=== PATIENT | male | born 1970 | race Caucasian/White ===

== ENCOUNTER 2021-09-20 23:03 | Emergency (ER) | payer BC, SELFPAY ==
[2021-09-20 23:13] VITALS: BP 113/81; PULSE 67; RESP 18; TEMP 36.4; O2SAT 96; BMI 26.6
--- NOTE | 2021-09-21 00:30 | ED.GENADULT ---
HPI - General Adult General Time Seen by Provider: 00:29 Date Seen: 09/21/21 Chief complaint: Laceration/Wound Stated complaint: Cut on RT leg possibly infected Time Seen by Provider: 09/20/21 23:07 Source: patient History of Present Illness HPI narrative: 51-year-old male who comes in today with right leg pain and rash. Patient was seen 5 days ago in clinic and had a cyst on the right lower leg incised. He was started on antibiotics at that time. Initially developed some bruising around the area but has had continued pain. Finished antibiotics yesterday morning and then during the course the day has developed redness and increasing pain distal to the area of the procedure. He is taking Tylenol and ibuprofen for this. He denies fever, chills, nausea, or vomiting. Presents today with concern for increasing redness and continued pain. Related Data Home Medications Medication Instructions Recorded Confirmed mwpdwrqhax-rymmgvb-ffqgmnlx 50 1 cap PO .PRN cap 09/15/21 09/20/21 mg-325 mg-40 mg capsule levothyroxine 112 mcg tablet 112 mcg PO QDAY 09/15/21 09/20/21 (Synthroid) pantoprazole 40 mg tablet,delayed 40 mg PO DAILY 09/15/21 09/20/21 release rizatriptan 10 mg tablet 10 mg PO .As Needed PRN 09/15/21 09/20/21 Previous Rx's Medication Instructions Recorded cefadroxil 500 mg capsule 500 mg PO BID #10 cap 09/15/21 clindamycin HCl 300 mg capsule 300 mg PO TID #21 cap NS 09/21/21 Allergies Allergy/AdvReac Type Severity Reaction Status Date / Time metoclopramide AdvReac Mild laughing Verified 09/15/21 09:44 Review of Systems Status of ROS: Reports: 10 or more systems reviewed and unremarkable except as noted in History and below PFSH PFSH Family History Father Prostate cancer Social History Smoking Status: Current every day smoker What tobacco products do you use: cigarettes Smoking packs per day: 0.5 Smoking cigarettes per day: 10.0 Do you use any of these nicotine containing products: None Second hand tobacco smoke exposure: No How often do you have a drink containing alcohol: 2-4 times a month How often do you have six or more drinks on one occasion: Never AUDIT-C Alcohol total score: 2 Non-prescribed substance use: denies use Exam Const: Vital Signs, click to edit/add: Vital Signs - 24 hr 09/20/21 23:13 Temperature 97.6 F Pulse Rate [Right Pulse Oximeter] 67 Respiratory Rate 18 Blood Pressure [Ri ght Upper Arm] 113/81 Pulse Oximetry 96 Documenting provider has reviewed patient's vital signs: yes Common normals: no apparent distress, oriented x3, alert and well nourished HENMT: Common normals: normocephalic, head/scalp atraumatic, external ears normal and external nose normal Head and scalp: normocephalic and atraumatic Nose: external nose normal External ear: external ears normal Eye: Common normals: PERRL and conjunctivae normal Conjunctiva: conjunctiva(e) normal Pupil: PERRL Neck & C-Spine: Common normals: full ROM, no lymphadenopathy and supple Back & Pelvis: Common normals: thoracic and lumbar spine normal to inspection Extremity: Common normals: normal to inspection, full ROM and no pedal edema Neuro: Common normals: oriented x3, CN's II-XII intact bilaterally and no focal motor deficits Sensorium/orientation: alert Psych: Common normals: mental status grossly normal Skin: Narrative: Right anterior medial lower leg distally there is a 1 cm area where previous cyst was incised. There is about 2 cm of surrounding bruising and redness in this area. Distal to this there is an area of approximately 8 cm induration with nonblanching petechiae, warmth, and redness. This area is tender. There is minimal swelling and no pain out of proportion. No crepitus or subcutaneous air, no areas of gangrene or ischemia. Course Reevaluation(s) Reevaluation #1: Labs so far reassuring including normal platelet count, normal white blood cell count. Basic panel is reassuring. CRP is pending. Time: 01:39 Reevaluation #2: CRP is negative. Vancomycin is infusing and plan to discharge. Time: 01:43 Vital Signs Vital signs: Initial Vital Signs Temperature 97.6 F 09/20/21 23:13 Temperature Source Temporal Artery Scan 09/20/21 23:13 Pulse Rate 67 09/20/21 23:13 Respiratory Rate 18 09/20/21 23:13 Blood Pressure 113/81 09/20/21 23:13 Blood Pressure Mean 91 09/20/21 23:13 Pulse Oximetry 96 09/20/21 23:13 Oxygen Delivery Method 09/20/21 23:13 Vital Signs Temperature 97.6 F 09/20/21 23:13 Pulse Rate 67 09/20/21 23:13 Respiratory Rate 18 09/20/21 23:13 Blood Pressure 113/81 09/20/21 23:13 Pulse Oximetry 96 09/20/21 23:13 Temperature 97.6 F 09/20/21 23:13 Pulse Rate 67 09/20/21 23:13 Respiratory Rate 18 09/20/21 23:13 Blood Pressure 113/81 09/20/21 23:13 Pulse Oximetry 96 09/20/21 23:13 Medical Decision Making MDM Narrative Medical decision making narrative: Patient seen and examined, prior records reviewed. Differential diagnosis includes but not limited to cellulitis, necrotizing soft tissue infection, DVT, palpable purpura, trauma, vasculitis. Patient presents with redness and warmth distal to an area that was recently incised and drained. This got worse after stopping antibiotics. On exam, patient is afebrile with no systemic signs of infection. He does have an area of redness and warmth distal to the previous incision. This appears more petechial and nonblanching, warm, tender. No indications of necrotizing soft tissue infection including pain out of portion, numbness, nor crepitus on exam. Labs ordered along with vancomycin IV. No cultures were done from the initial incision and drainage. This may be related to trauma related to recent procedure, cannot exclude continued infection. Vancomycin ordered in the emergency department and clindamycin for Home. Medical Records Medical records reviewed: Yes I reviewed the patient's medical records Lab Data Lab results reviewed: Yes I reviewed the patient's lab results Labs: Lab Results 09/21/21 09/21/21 Range/Units 00:50 00:50 WBC 8.54 (4.50-11.00) K/uL RBC 4.50 (4.30-5.90) m/uL Hgb 13.6 (13.5-17.5) gm/dL Hct 40.2 (37.0-53.0) % MCV 89 (80-100) fL MCH 30 (26-34) pg MCHC 34 (32-36) gm/dL RDW Coeff of Preet 12.9 (11.5-15.5) % Plt Count 226 (140-440) K/uL Neut % (Auto) 49.1 (42.0-72.0) % Lymph % (Auto) 39.8 (20-44) % [place] % (Auto) 8.3 (0.0-11.0) % Eos % (Auto) 1.9 (0.0-7.0) % Baso % (Auto) 0.7 (0.0-3.0) % Neut # (Auto) 4.19 (1.7-7.0) K/uL Lymph # (Auto) 3.40 H (0.90-2.90) K/uL [place] # (Auto) 0.70 (0.00-0.90) K/UL Eos # (Auto) 0.16 (0.00-0.50) K/uL Baso # (Auto) 0.06 (0.00-0.30) K/uL Abs Immat Gran (auto) 0.02 (0.00-0.30) K/uL Sodium 137 (135-149) mmol/L Potassium 3.6 (3.6-5.1) mmol/L Chloride 106 (96-114) mmol/L Carbon Dioxide 24 (20-32) mmol/L BUN 12 (7-30) mg/dL Creatinine 0.8 (0.5-1.5) mg/dL Estimated Creat Clear 109.24 Glucose 97 (60-115) mg/dL Calcium 8.9 (8.4-10.6) mg/dL Discharge Plan Discharge Clinical Impression: Petechial rash, Cellulitis Patient Disposition: Home, Self-Care Condition: Stable Instructions: Cellulitis (ED) Additional Instructions: Elevate, compress, ice. Take antibiotics as prescribed. Follow-up with your regular doctor in 5-7 days. Take Tylenol and ibuprofen as needed for pain. Activity Level: No Restrictions Discharge Diet: Regular Prescriptions: New clindamycin HCl 300 mg capsule 300 mg PO TID Qty: 21 0RF No Action rizatriptan 10 mg tablet 10 mg PO .As Needed PRN0RF Rx Instructions: TAKE ONE TAB AT ONSET OF HEADACHE, MAY REPEAT Q2H PRN, MAX 30 MG/24 HRS pantoprazole 40 mg tablet,delayed release (DR/EC) 40 mg PO DAILY 0RF levothyroxine [Synthroid] 112 mcg tablet 112 mcg PO QDAY 0RF sbbmtbdwji-mhsrabo-nvdvbfal 50-325-40 mg capsule 1 cap PO .PRN 0RF cefadroxil 500 mg capsule 500 mg PO BID Qty: 10 0RF Follow Up/Referrals: Basilio Azul MD [Primary Care Provider] - Stand Alone Forms: [facility] Info Instructions
[2021-09-21 01:17] LABS: Basophils Absolute Auto 0.06 K/uL (0.00-0.30); Basophils Percent Auto 0.7 % (0.0-3.0); Eosinophils Absolute Auto 0.16 K/uL (0.00-0.50); Eosinophils Percent Auto 1.9 % (0.0-7.0); Hematocrit 40.2 % (37.0-53.0); Hemoglobin* 13.6 gm/dL (13.5-17.5); Immature Granulocytes Abs Auto 0.02 K/uL (0.00-0.30); Lymphocytes Percent Auto 39.8 % (20-44); Mean Corpuscular HGB Conc 34 gm/dL (32-36); Mean Corpuscular Hemoglobin 30 pg (26-34); Mean Corpuscular Volume 89 fL (80-100); Monocytes Percent Auto 8.3 % (0.0-11.0); Neutrophils Absolute Auto 4.19 K/uL (1.7-7.0); Neutrophils Percent Auto 49.1 % (42.0-72.0); Platelet Count* 226 K/uL (140-440); RDW Coefficient of Variation % 12.9 % (11.5-15.5); White Blood Count* 8.54 K/uL (4.50-11.00)
[2021-09-21 01:22] LABS: Slide Review Reflex No
[2021-09-21 01:29] LABS: Chloride* 106 mmol/L (96-114); Potassium* 3.6 mmol/L (3.6-5.1); Sodium* 137 mmol/L (135-149)
[2021-09-21 01:32] LABS: Creatinine* 0.8 mg/dL (0.5-1.5); Est. Creatinine Clearance* 109.24; Estimated Glomerular Filt Rate 107.15
[2021-09-21 01:33] LABS: Blood Urea Nitrogen* 12 mg/dL (7-30); Calcium* 8.9 mg/dL (8.4-10.6); Carbon Dioxide* 24 mmol/L (20-32); Glucose* 97 mg/dL (60-115)
[2021-09-21 01:39] LABS: C Reactive Protein* < 0.5 mg/dL (0.5-1.0)
--- NOTE | 2021-09-21 03:23 | PC.NURSE ---
Patient now reporting itching of face and upper extremities. Dr. Herrera made aware. Will d/c vancomycin infusion early and plan to give IVP benadryl. Will watch patient for 30 min after benadryl admin per Dr. Herrera.
[2021-09-21] MEDS: diphenhydrAMINE 50 MG/ML inj 25 MG IVP (03:33)
[2021-09-21 03:53] VITALS: BP 109/69; PULSE 57; RESP 16; O2SAT 97
[2021-09-21 04:03] VITALS: BP 109/69; PULSE 57; RESP 16; TEMP 36.4
== END 2021-09-21 04:03 | disposition home or self-care (01) ==
PROVIDERS: Emergency Provider Family Medicine; PCP Family Medicine
DX: L03.115 Cellulitis of right lower limb (principal); R23.3 Spontaneous ecchymoses
CPT/HCPCS: 36415; 80048; 85025; 86140; 87040; 96365; 96375; 99284; J1200; J3370; J7120

== ENCOUNTER 2022-04-07 15:33 | Outpatient (CLI) | payer BC, SELFPAY ==
[2022-04-07 14:59] LABS: Chloride* 108 mmol/L (96-114)
[2022-04-07 15:00] LABS: Potassium* 4.4 mmol/L (3.6-5.1); Sodium* 140 mmol/L (135-149)
[2022-04-07 15:02] LABS: Carbon Dioxide* 26 mmol/L (20-32); Cholesterol* 161 mg/dL (90-199); Creatinine* 0.8 mg/dL (0.5-1.5); Estimated Glomerular Filt Rate 106 ml/min
[2022-04-07 15:03] LABS: Blood Urea Nitrogen* 12 mg/dL (7-30); Calcium* 8.9 mg/dL (8.4-10.6); Glucose* 94 mg/dL (60-115); HDL Cholesterol* 44 mg/dL (>=40); LDL Cholesterol Calculated 104 mg/dL (<100); Triglycerides* 64 mg/dL (40-149)
[2022-04-11 16:21] LABS: PSA Screen* 1.66 ng/mL (0.10-4.00)
== END 2022-04-07 15:34 | disposition home or self-care (01) ==
PROVIDERS: PCP Family Medicine; Visit Provider Family Medicine
DX: Z00.00 Encounter for general adult medical examination without abnormal findings (principal); E03.9 Hypothyroidism, unspecified; Z12.5 Encounter for screening for malignant neoplasm of prostate; Z13.6 Encounter for screening for cardiovascular disorders
CPT/HCPCS: 80048; 80061; 84153; 84443

== ENCOUNTER 2023-04-16 15:52 | Outpatient (CLI) | payer BC, SELFPAY ==
--- OUTSIDE RECORDS SUMMARY | 2023-04-16 15:59 | XMS_ITS | Continuity of Care Document ---
Author Name [facility] Organization [facility] Care Team Providers Care Glass Etcher Helper Name Role Phone [facility] Unavailable Unavailable Problems Combined list of problems from Department of Defense and [facility] facilities. It does not include entries that were removed or entered in error. Problem Status Onset Date Problem Type Date of Resolution Comments Source Diagnosis: ICD-10-CM Z02.89 Encounter for other administrative examinations Active Diagnosis [facility] Diagnosis: ICD-10-CM Z02.71 Encounter for disability determination Active Diagnosis [facility] Encounters Combined list of: 1) Encounters from Department of [facility] facilities going back up to thelast 18 months. 2) Encounters from the Department of [facility] facilities going back up to 280 months. Location Location Details Encounter Type Encounter Number Reason For Visit Attending Provider ADM Date DC Date Status Disposition Source [facility] Outpatient Encounter [id number] Diagnos is: ICD-10- CM Z02.89 Encount er for other adminis trative examina tions<b r/> DENISE PEREIRA 12/22 [facility] Outpatient Encounter [id number] Diagnos is: ICD-10- CM Z02.71 Encount er for disabil ity determi nation< br/> KAEL KING 12/22 [facility] Outpatient Encounter [id number] Diagnos is: ICD-10- CM Z02.71 Encount er for disabil ity determi nation< br/> KAEL KING 12/22 [facility] Outpatient Encounter [id number] Diagnos is: ICD-10- CM Z02.89 Encount er for other adminis trative examina tions<b r/> SILVIANO WELLS 08/[address] [facility]
--- OUTSIDE RECORDS SUMMARY | 2023-04-16 15:59 | XMS_ITS | Clinical Summary ---
Author Name Unknown Organization [place] Address [facility] [place] [address] Care Team Providers Care Online User Experience Strategist Name Role Phone Clinic, [facility] Primary Care Provider Allergies Active Allergy Reactions Criticality Noted Date Comments Metoclopramide 07/30/2018 Medications Medication Sig Dispensed Refills Start Date End Date Status pantoprazole (PROTONIX) 40 MG EC tablet Take 40 mg by mouth daily 0 Active levothyroxine (SYNTHROID/LEVOTHROID) 125 MCG tablet Take 125 mcg by mouth daily 0 Active escitalopram (LEXAPRO) 20 MG tablet Take 20 mg by mouth daily 0 Active Social History Tobacco Use Types Packs/Day Years Used Date Smoking Tobacco: Never Assessed Adolescent Education Answer Date Record ed Getting School Help Needed Not on file 12/08 Sex and Gender Information Value Date Recorded Sex Assigned at Not on file Gender Identity Not on file Sexual Orientation Not on file Last Filed Vital Signs Vital Sign Reading Time Taken Comments Blood Pressure 103/68 07/30/2018 6:50 PM CDT Pulse 65 07/30/2018 6:50 PM CDT Temperature 37.3 ??C (99.1 ??F) 07/30/2018 10:28 AM C DT Respiratory Rate 19 07/30/2018 3:00 PM CDT Oxygen Saturation 97% 07/30/2018 8:01 PM CDT Inhaled Oxygen Concentration - - Weight - - Height - - Body Mass Index - - Plan of Treatment Not on file Care Teams Online User Experience Strategist Relationship Specialty Start Date End Date Clinic, [facility] [address] [place] [address] PCP - General 07/30/18
--- OUTSIDE RECORDS SUMMARY | 2023-04-16 15:59 | XMS_ITS | Referral Summary ---
Author Name Unknown Organization [place] Address Replaced by [facility] [place] [address] Care Team Providers Care Dipper Operator Name Role Phone Clinic, [facility] Primary Care Provider Allergies Active Allergy Reactions [...] of Treatment Not on file Care Teams Dipper Operator Relationship Specialty Start Date End Date Clinic, [facility] [address] [place] [address] PCP - General 07/30/18
== END 2023-04-16 15:53 | disposition home or self-care (01) ==
PROVIDERS: PCP Family Medicine; Visit Provider Family Medicine
DX: E78.00 Pure hypercholesterolemia, unspecified (principal); E03.9 Hypothyroidism, unspecified; Z12.5 Encounter for screening for malignant neoplasm of prostate; Z13.228 Encounter for screening for other metabolic disorders
CPT/HCPCS: 80053; 80061; 84443; G0103

== ENCOUNTER 2023-04-19 08:35 | Outpatient (CLI) | payer BC, SELFPAY ==
--- OUTSIDE RECORDS SUMMARY | 2023-04-19 08:37 | XMS_ITS | Referral Summary ---
Author Name Unknown Organization [place] Address [facility] [place] [address] Care Team Providers Care Metal Casting Trades Worker Name Role Phone Clinic, [facility] Primary Care Provider Allergies Active Allergy Reactions [...] of Treatment Not on file Care Teams Metal Casting Trades Worker Relationship Specialty Start Date End Date Clinic, [facility] [address] [place] [address] PCP - General 07/30/18
--- OUTSIDE RECORDS SUMMARY | 2023-04-19 08:37 | XMS_ITS | Clinical Summary ---
Author Name Unknown Organization [place] Address [facility] [place] [address] Care Team Providers Care Paste Mixer Liquid Name Role Phone Clinic, [facility] Primary Care Provider Allergies Active [...] of Treatment Not on file Care Teams Paste Mixer Liquid Relationship Specialty Start Date End Date Clinic, [facility] [address] [place] [address] PCP - General 07/30/18
--- OUTSIDE RECORDS SUMMARY | 2023-04-19 08:37 | XMS_ITS | Continuity of Care Document ---
Author Name [facility] Organization [facility] Care Team Providers Care Can Closing Machine Operator Name Role Phone [facility] Unavailable Unavailable Problems Combined list of problems from Department of Defense and [facility] facilities. It does not include entries that were removed or entered in error. Problem Status Onset Date Problem Type Date of Resolution Comments Source Diagnosis: ICD-10-CM Z02.89 Encounter for other administrative examinations Active Diagnosis [facility] Diagnosis: ICD-10-CM Z02.71 Encounter for disability determination Active Diagnosis [facility] Encounters Combined list of: 1) Encounters from Department of [facility] facilities going back up to thelast 18 months. 2) Encounters from the Department of [facility] facilities going back up to 280 months. Location Location Details Encounter Type Encounter Number Reason For Visit Attending Provider ADM Date DC Date Status Disposition Source [facility] Outpatient Encounter [id number] Diagnos is: ICD-10- CM Z02.89 Encount er for other adminis trative examina tions<b r/> DENISE PEREIRA 12/22 [facility] Outpatient Encounter [id number] Diagnos is: ICD-10- CM Z02.71 Encount er for disabil ity determi nation< br/> KAEL KING 12/22 [facility] Outpatient Encounter [id number] Diagnos is: ICD-10- CM Z02.71 Encount er for disabil ity determi nation< br/> KAEL KING 12/22 [facility] Outpatient Encounter [id number] Diagnos is: ICD-10- CM Z02.89 Encount er for other adminis trative examina tions<b r/> SILVIANO WELLS 08/11 DARIAN Chávez [facility]
--- NOTE | 2023-04-19 10:21 | W.ANESCHARGE ---
Anesthesia Charges Start Date/Time Anesthesia Start Date: 04/19/23 Anesthesia Start Time: 10:03 Stop Date/Time Anesthesia Stop Date: 04/19/23 Anesthesia Stop Time: 10:18
--- NOTE | 2023-04-19 12:40 | W.ANESCHARGE ---
Anesthesia Charges Start Date/Time Anesthesia Start Date: 04/19/23 Anesthesia Start Time: 10:03 Stop Date/Time Anesthesia Stop Date: 04/19/23 Anesthesia Stop Time: 10:18
== END 2023-04-19 08:36 | disposition home or self-care (01) ==
LOC: OP CLINIC 08:36
PROVIDERS: PCP Family Medicine; Visit Provider Surgery
DX: R11.2 Nausea with vomiting, unspecified (principal); K31.89 Other diseases of stomach and duodenum; R19.8 Other specified symptoms and signs involving the digestive system and abdomen
CPT/HCPCS: 00731; 43239; 88305; J2704

== ENCOUNTER 2023-04-24 07:30 | Outpatient (CLI) | payer BC, SELFPAY ==
--- OUTSIDE RECORDS SUMMARY | 2023-04-24 07:32 | XMS_ITS | Clinical Summary ---
Author Name Unknown Organization [place] Address [facility] [place] [address] Care Team Providers Care Cage Manager Name Role Phone Clinic, [facility] Primary Care Provider Allergies Active [...] of Treatment Not on file Care Teams Cage Manager Relationship Specialty Start Date End Date Clinic, [facility] [address] [place] [address] PCP - General 07/30/18
--- OUTSIDE RECORDS SUMMARY | 2023-04-24 07:32 | XMS_ITS | Continuity of Care Document ---
Author Name [facility] Organization [facility] Care Team Providers Care Technician Name Role Phone [facility] Unavailable Unavailable Problems Combined list of problems from Department of Defense and [facility] facilities. It does not include entries that were removed or entered in error. Problem Status Onset Date Problem Type Date of Resolution Comments Source Diagnosis: ICD-10-CM Z02.89 Encounter for other administrative examinations Active Diagnosis [facility] Diagnosis: ICD-10-CM Z02.71 Encounter for disability determination Active Diagnosis [facility] Encounters Combined list of: 1) Encounters from Department of [facility] facilities going back up to thelast 18 months. 2) Encounters from the Department of [facility] facilities going back up to 280 months. Location Location Details Encounter Type Encounter Number Reason For Visit Attending Provider ADM Date DC Date Status Disposition Source [facility] Outpatient Encounter [id number] Diagnos is: ICD-10- CM Z02.89 Encount er for other adminis trative examina tions<b r/> DENISE PEREIRA 12/22 [facility] Outpatient Encounter [id number] Diagnos is: ICD-10- CM Z02.71 Encount er for disabil ity determi nation< br/> KAEL KING 12/22 [facility] Outpatient Encounter [id number] Diagnos is: ICD-10- CM Z02.71 Encount er for disabil ity determi nation< br/> KAEL KING 12/22 [facility] Outpatient Encounter [id number] Diagnos is: ICD-10- CM Z02.89 Encount er for other adminis trative examina tions<b r/> SILVIANO WELLS 08/11 DARIAN Chávez [facility]
--- OUTSIDE RECORDS SUMMARY | 2023-04-24 07:32 | XMS_ITS | Referral Summary ---
Author Name Unknown Organization [place] Address [facility] [place] [address] Care Team Providers Care Retail Manager In Training Name Role Phone Clinic, [facility] Primary Care Provider Allergies Active [...] of Treatment Not on file Care Teams Retail Manager In Training Relationship Specialty Start Date End Date Clinic, [facility] [address] [place] [address] PCP - General 07/30/18
--- NOTE | 2023-04-24 08:00 | CRLHL7_ITS ---
For Patients: As a result of the Cures Act, medical imaging exams and procedure reports are released immediately into your electronic medical record. You may view this report before your referring provider. If you have questions, please contact your health care provider. INDICATION: Lung nodule TECHNIQUE: CT chest without contrast. COMPARISON: 03/25/[address] FINDINGS: Lungs and pleura: 3 mm right upper lobe pulmonary nodule image 21 series 3, stable in should be benign. Occasional tiny calcified granulomas. No new nodules. No pleural effusions, pleural thickening, or pneumothorax. Heart and vasculature: Heart size is normal. Thoracic aorta and pulmonary artery are normal in caliber. Lymph nodes/mediastinum: No mediastinal, hilar, or axillary adenopathy. Thyroid gland is normal. Chest wall: No masses. Upper abdomen: Cholecystectomy. Bones: Unremarkable for age. IMPRESSION: 1. 3 mm right upper lobe pulmonary nodule is stable in should be benign. No further follow-up necessary. Please note that all CT scans at this facility use dose modulation, iterative reconstruction, and/or weight-based dosing when appropriate to reduce radiation dose to as low as reasonably achievable. Dictated by Rogelio Rangel MD @ 04/25/2023 8:12:46 AM (Electronically Signed)
== END 2023-04-24 07:31 | disposition home or self-care (01) ==
LOC: CT 07:31
PROVIDERS: PCP Family Medicine; Visit Provider Family Medicine
DX: R91.1 Solitary pulmonary nodule (principal)
CPT/HCPCS: 71250

== ENCOUNTER 2023-11-12 19:38 | Outpatient (CLI) | payer BC, SELFPAY ==
--- OUTSIDE RECORDS SUMMARY | 2023-11-12 19:41 | XMS_ITS | Clinical Summary ---
Author Organization [facility] Address [address] [place] [address] Care Team Providers Care Electroless Plater Name Role Phone Elsewhere, Pcp Primary Care Provider Unavailabl e Source Comments Patient records contain information from all sites at [facility]. For routine questions regarding patient records, call [phone] during business hours, M-F 8:00 AM - 5:00 PM Central Time. Record requests for emergency care only can be directed to [phone] at any time.[facility] Allergies Active Allergy Reactions Criticality Noted Date Comments Metoclopramide Other (see comments) 07/30/2018 Metoclopramide Hcl Other (see comments) 019 Uncontrollable Laughing Medications Medication Sig Dispensed Refills Start Date End Date Status pantoprazole (PROTONIX) 40 mg EC tablet Take 40 mg by mouth daily. Active SYNTHROID 112 mcg tablet Take 1 tablet (112 mcg total) by mouth every morning before breakfast. 90 tablet 3 10/11/2018 Active acetaminophen (TYLENOL) 325 mg tablet Take 650 mg by mouth. Active ZOLMitriptan (ZOMIG) 5 mg tablet Take 5 mg by mouth as needed. 10/31/2013 Active rizatriptan benzoate (RIZATRIPTAN ORAL) Take 10 mg by mouth as needed. 04/16/2023 Active Active Problems Problem Noted Date Diagnosed Date Hypothyroidism Primary 10/11/2018 Migraine Headache Without Aura 10/10/2018 Chronic Migraine 10/10/2018 Encounters Date Type Department Care Team Description 10/17/2023 2:35 PM CDT - 10/17/2023 11:59 PM CDT Hospital Encounter Department of Neurology in [place], [place] [address] [place] [address] Dmitri Craven M.B.B.SJan Rucker M.D. Chronic Migraine Discharge Disposition: Home or Self Care 08/28/2023 10:00 AM CDT Comprehensive Visit Department of Spine in [place], [place] [address] [place] [address] Arthur Jones M.D. 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 Abnormal Magnetic Resonance Imaging Spine (Primary Dx) from Last 3 Months Family History Medical History Relation Name Comments Coronary artery disease Father cayla archer Hypertension Father cayla archer Prostate cancer Father cayla archer Skin cancer Father cayla archer Sleep apnea Father cayla archer Diabetes Maternal Grandfather lawanda tirado Colon cancer Maternal Grandmother margo stokke Dementia Maternal Grandmother humbertonace stokke Diabetes Maternal Grandmother margo stokke Endometrial cancer Mother william archer Pancreatic cancer Mother william archer Thyroid disease Sister tram whaley Relation Name Status Comments Father cayla archer Maternal Grandfather lawanda tirado Maternal Grandmother margo richardkke Mother william archer Sister tram whaley Social History Tobacco Use Types Packs/Day Years Used Date Smoking Tobacco: Light Smoker Cigarettes 0.8 37.4 Started: 06/28/1986 Smokeless Tobacco: Former Chew Alcohol Use Standard Drinks/Week Comments Yes 0 (1 standard drink = 0.6 oz pur e alcohol) [facility] Utilities Answer Date Recorded In the past 12 months has e electric, gas, oil, or water company threatened to shut off services in your home? No 06/20/2023 Social Connection and Isolat ion Panel [NHANES] Answer Date Recorded Frequency of Communication w ith Friends and Family More than three times a week 10/10/2018 Frequency of Social Gatherin gs with Friends and Family Once a week 10/10/2018 Attends Zoroastrianism Services Never 10/10 Active Member of Clubs or Organizations No 10/10/2018 Attends Club or Organization Meetings Never 10/10/2018 Marital Status 10/10/2018 AUDIT-C Answer Date Recorded Frequency of Alcohol Consumption Monthly or less 10/10/2018 Average Number of Drinks Not on file 019 Frequency of Binge Drinking Not on file 09/17 Overall Financial Resource Strain (CARDIA) Answe r Date Recorded Difficulty of Paying Living Expenses Not very espinoza rd 10/10/2018 PHQ-2 Answer Date Recorded PHQ-2 Score 1 06/25/2023 [facility] - Occupational Stress Questionnaire Answer Date Recorded Feeling of Stress To some extent 10/10/2018 Exercise Vital Sign Answer Date Recorde d On average, how many days pe r week do you engage in moderate to strenuous exercise (like a brisk walk)? 1 day 06/20/2023 On average, how many minutes do you engage in exercise at this level? 20 min 06/20/2023 Hunger Vital Sign Answer Date Recorded Within the past 12 months, y ou worried that your food would run out before you got the money to buy more. Never true 06/20/19 24 Within the past 12 months, t he food you bought just didn't last and you didn't have money to get more. Never true 06/20/2023 PRAPARE - Transportation Answer Date Re corded In the past 12 months, has l ack of transportation kept you from medical appointments or from getting medications? No 05/2023 In the past 12 months, has l ack of transportation kept you from meetings, work, or from getting things needed for daily living? No 06/20/2023 Depression Answer Date Recor ded PHQ-9 Total Score (max 27) 6 06/24 Nutrition Answer Date Recorded Nutrition: EVOO Fat Source Unknown 06/19 On average, how many serving s of fruits and vegetables do you eat per day (serving size is equal to 1 cup or approximately the size of a tennis ball)? 3-5 06/20/2023 Dental Answer Date Recorded Dental: Regular Dentist Yes 06/20/19 Employment Answer Date Recorded Employment status Employed and actively working without restrictions 06/20/2023 Housing Stability Answer Date Recorded What is your living situation today? I have a [facility] place to live 06/20/2023 Education Answer Date Recorded What is the highest level of school you have completed or the highest degree you have received? Some college, no degree 10/10/2018 Sex and Gender Information Value Date Recorded Sex Assigned at Male 06/20/2023 11:55 AM CDT Gender Identity Male 06/20/2023 11:55 AM CDT Sexual Orientation Straight 06/20/2023 11 :55 AM CDT Last Filed Vital Signs Vital Sign Reading Time Taken Comments Blood Pressure 100/68 06/25/2023 10:20 AM CDT Pulse 77 06/25/2023 10:20 AM CDT Temperature - - Respiratory Rate - - Oxygen Saturation - - Inhaled Oxygen Concentration - - Weight 93.5 kg (206 lb 2.1 oz) 06/25/2023 10:20 AM CDT Height 178 cm (5' 10.08) 06/25/2023 10:20 AM CD T Body Mass Index 29.51 06/25/2023 10:20 AM CDT Plan of Treatment Upcoming Encounters Date Type Department Care Team (Late st Contact Info) Description 01/09/2024 3:30 PM CDT Appointment Department of Neurology in [place], [place] [address] [place] [address] Dmitri Craven M.B.B.S. [address] [address] [place] [phone] Discharge Disposition: Home or Self Care Health Maintenance Due Date Last Done Comments CT Colonography 1970 Cologuard 1970 Colonoscopy 1970 Colorectal Cancer Screening 1970 FIT 1970 HIV Screening 1970 Hepatitis C Screening 1970 Lipid (Cholesterol) Screening 1970 Pneumococcal vaccine (0-64 y ears) (1 of 2 - PCV) 02/23/1976 Hepatitis B Vaccines (1 of 3 - 19+ 3-dose series) 1989 Zoster Vaccines (1 of 2) 02/23/2020 Fasting Glucose for Diabetes Screening 07/30/2021 COVID-19 Vaccine (3 - 2022- season) 2022, 07/15/2020 Influenza Vaccine (#1) 2023 02/18/2018 DTaP,Tdap,and Td Vaccines (2 - Td or Tdap) 09/25/2027 09/24/2017, 08/13/2009 Depression Screening (Annual PHQ-2) Completed 06/24 Procedures Procedure Name Priority Date/Time Associated Diagnosis Comments CT CHEMODENERV FACIAL TRIGEM VERA Routine 10/17/2023 3:00 PM CDT Chronic Migraine from Last 3 Months Results * CT CHEMODENERV FACIAL TRIGEM VERA (10/17/2023 3:00 PM CDT) Narrative MMODAL - 10/17/2023 3:00 PM CDT Jan Tejeda M.D. ? 10/17/2023 ??3:11 PM Botox for Chronic Migraine Performed by: Jan Tejeda M.D. Authorized by: Dmitri Craven M.B.B.S. ?? Care team members present 1. Mark Knutson, L.PJayceeN. PROCEDURE DETAILS ?? Pre-procedure pain score: 1/10 Injection of: ??100 Units onabotulinumtoxinA 100 unit 50 Units onabotulinumtoxinA 50 unit Needle gauge: 30 Needle length: 0.5 in Injection site details Export Packer / Procerus muscle(s): 5 units into the left saturation diver muscle, 5 units into the right saturation diver muscle ??and 5 units into the procerus muscle ??(15 units total). Superior Frontalis muscle(s): 5 units into the left superior frontalis muscle and 5 units into the right superior frontalis muscle ?(2 injection sites per muscle) (10 units total). Temporalis muscle(s): 12.5 units into the left temporalis muscle and 12.5 units into the right temporalis muscle ?(2 injection sites per muscle) ?? (25 units total). Splenius Capitis muscle(s): 12.5 units into the left splenius capitis muscle and 12.5 units into the right splenius capitis muscle ?(2 injection sites per muscle) ??(25 units total). Occipitalis muscle(s): 12.5 units into the left occipitalis muscle and 12.5 units into the right occipitalis muscle ?? (2 injection sites per muscle) ??(25 units total). Trapezius muscle(s): 25 units into the left trapezius muscle and 25 units into the right trapezius muscle ?? (3 injection sites per muscle) ??(50 units total). Total units wasted: 0 Total units injected: 150 CONSENT Consent obtained: written (Risks, benefits and alternatives were discussed and a written Informed Consent was obtained. Please see Informed Consent form for further details.) The benefits, risks and alternatives to the procedure and the potential need for sedation or anesthesia as well as the names, roles, and responsibilities of healthcare team members performing significant interventional tasks were discussed with the patient and/or decision maker. UNIVERSAL PROTOCOL All relevant documentation and testing were reviewed and available. All required blood products, implants, devices and or special equipment were made available as applicable. Pre-procedure verification was conducted and the correct site was marked if required. A fire risk and smoke assessment were done as applicable. The procedural time-out to verify correct patient, correct side/site, and procedure was conducted prior to performing the procedure and confirmed in a procedural pause. PRE-PROCEDURE DETAILS ?? Reason for injections: chronic migraine Appropriate hand hygiene, gown, cap, mask, protective eyewear, sterile gloves, skin preparation, sterile drape, and strict aseptic technique were utilized as applicable for the procedure: yes Site preparation: alcohol Clinical history: Patient was made aware that they may be responsible for any and all costs associated with injection of Botulinum Toxin Type A that is not covered by a third constitution party. ?? Prior to treatment with Botox, the frequency of headaches was greater than 20 days per month and with significant impairment in the quality of life. ?? Please see the initial Botox injection note and Headache consultation note regarding specific details of the headache history prior to the start of treatment. Any other daily migraine prophylactic treatments taken over the last 3 months: ??None Headache frequency when Botox is most effective (middle month in between rounds). Current headache days per month: 30 days Current severe headache days per month: 15 days Wearing off phenomenon prior to this round of Botox: yes Duration: 2 weeks Patient finds Botox treatment helpful and wants to repeat the treatment? yes Patient had migraine headache frequency reduction by at least 7 days per month compared to pretreatment level, or migraine headache duration reduction of at least 100 hours per month compared to pretreatment level? yes Midas Scorin (10/16/2023 ??8:24 PM) POST-PROCEDURE DETAILS ?? Procedure completed successfully: yes ?? Complications: no apparent complications Comments Medications tried prior to Botox treatment: Gabapentin and Topiramate. Prior to Botox how many days per month did you miss work/school due to migraines? 0- pushes through headaches but does leave work early because of headaches Prior to Botox how many days per month did you miss out on family functions or home activities due to migraines? 10 Prior to Botox did severe migraines cause symptoms that impacted your quality of life and ability to care for yourself? If yes, what symptoms? Yes. Throbbing, jabbing pain with pressure, nausea, vomiting, sensitivity to smells, dizziness, restlessness and visual disturbances. With Botox how many days per month do you miss work/school due to migraines? None ?? With Botox how many days per month do you miss out on family functions or home activities due to migraines? None How has Botox impacted your quality of life; are you able to do more at work/school or home? Not yet noticed improvement What migraine symptoms have you noted an improvement on since starting Botox? Less severity when it worked PLAN The patient has had good response for treatment of their chronic migraine with onabotulinumtoxin A injections at 150 units every 12 weeks in that the patient had migraine headache frequency reduced by at least 7 days per month compared to pretreatment level, or migraine headache duration reduction of at least 100 hours per month compared to pretreatment level. ?? Therefore, I have encouraged the patient to schedule their next round of injections 150 units in 12 weeks. Dmitri Armstrong NEUROLOGY ORDER CAROLANN MMODAL NA from Last 3 Months Care Teams Electroless Plater Relationship Specialty Start Date End Date Elsewhere, Pcp PCP - General Internal Medicine 06/25/23
--- OUTSIDE RECORDS SUMMARY | 2023-11-12 19:41 | XMS_ITS | Continuity of Care Document ---
Author Name [facility] Organization [facility] Care Team Providers Care Hearing Care Practitioner Name Role Phone [facility] Unavailable Unavailable Problems Combined list of problems from Department of Defense and Veterans [facility] facilities. It does not include entries that were removed or entered in error. Problem Status Onset Date Problem Type Date of Resolution Comments Source Diagnosis: ICD-10-CM Z02.89 Encounter for other administrative examinations Active Diagnosis [facility] Encounters Combined list of: 1) Encounters from Department of Veterans Affairs facilities going back up to thelast 18 months. 2) Encounters from the Department of [facility] facilities going back up to 280 months. Location Location Details Encounter Type Encounter Number Reason For Visit Attending Provider ADM Date DC Date Status Disposition Source [facility] Outpatient Encounter [id number] Diagnos is: ICD-10- CM Z02.89 Encount er for other adminis trative examina tiraheem<b r/> SILVIANO WELLS 08/11 [facility]
--- OUTSIDE RECORDS SUMMARY | 2023-11-12 19:41 | XMS_ITS | Referral Summary ---
Author Organization [facility] Address [address] [place] [address] Care Team Providers Care Security Vehicle Patrol Officer Name Role Phone Elsewhere, Pcp Primary Care Provider Unavailabl e Source Comments Patient records contain information from all sites at [facility]. For routine questions regarding patient records, call [phone] during business hours, M-F 8:00 AM - 5:00 PM Central Time. Record requests for emergency care only can be directed to [phone] at any time.[facility] Encounters Date Type Department Care Team Description 10/17/2023 2:35 PM CDT - 10/17/2023 11:59 PM CDT Hospital Encounter Department of Neurology in [place], [place] [address] [place] [phone] Dmitri Craven M.B.B.SJan Rucker M.D. Chronic Migraine Discharge Disposition: Home or Self Care 08/28/2023 10:00 AM CDT Comprehensive Visit Department of Spine in [place], [place] [address] [place] [phone] Arthur Jones M.D. 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); Abnormal Magnetic Resonance Imaging Spine 08/15/2023 Orders Only Department of Neurology in [place], [place] [address] [place] [phone] Dmitri Craven M.B.BJayceeSJaycee Abnormal Magnetic Resonance Imaging Spine (Primary Dx) from Last 3 Months Allergies Active Allergy Reactions Criticality Noted Date [...] Headache Without Aura 10/10/2018 Chronic Migraine 10/10/2018 Social History Tobacco Use Types Packs/Day Years Used Date Smoking Tobacco: Light Smoker Cigarettes 0.8 37.4 Started: 06/28/1986 Smokeless Tobacco: Former Chew Alcohol Use Standard Drinks/Week Comments Yes 0 (1 standard drink = 0.6 oz pur e alcohol) [facility] Utilities Answer Date Recorded In the past 12 months has [employer], gas, oil, or water [employer] threatened to shut off services in your home? No 06/20/2023 Social Connection and Isolat ion Panel [NHANES] Answer Date Recorded Frequency of Communication w ith Friends and Family More than three times a week 10/10/2018 Frequency of Social Gatherin gs with Friends and Family Once a week 10/10/2018 Attends [employer] Services Never 10/10 Active Member of Clubs [...] Answer Date Recorded PHQ-2 Score 1 06/25/2023 [facility] - Occupational Stress Questionnaire Answer Date Recorded [...] money to buy more. Never true 06/20/19 Within the past 12 months, t he [...] your living situation today? I have a [facility] place to live 06/20/2023 Education Answer Date [...] PM CDT Appointment Department of Neurology in [place], [place] [address] [place] [address] Dmitri Craven M.B.B.S. [address], [facility] [address] [phone] Discharge Disposition: Home or Self Care Procedures Procedure Name Priority Date/Time Associated Diagnosis Comments DC CHEMODENERV FACIAL TRIGEM VERA Routine 10/17/2023 3:00 PM CDT Chronic Migraine from Last 3 Months Results * DC CHEMODENERV FACIAL TRIGEM VERA (10/17/2023 3:00 PM CDT) Narrative MMODAL - 10/17/2023 3:00 PM CDT Jan Tejeda M.D. ? 10/17/2023 ??3:11 PM Botox for Chronic Migraine Performed by: Jan Tejeda M.D. Authorized by: Dmitri Craven M.B.B.SJaycee ?? Care team members present 1. Mark Knutson, LJayceePJayceeN. PROCEDURE DETAILS ?? Pre-procedure pain score: 1/10 Injection of: ??100 Units onabotulinumtoxinA 100 unit 50 Units onabotulinumtoxinA 50 unit Needle gauge: 30 Needle length: 0.5 in Injection site details Exhaust Emissions Inspector / Procerus muscle(s): 5 units into the left thrasher feeder muscle, 5 units into the right thrasher feeder muscle ??and 5 units into the procerus [...] that is not covered by a third republican. ?? Prior to treatment with Botox, the [...] NA from Last 3 Months Care Teams Security Vehicle Patrol Officer Relationship Specialty Start Date End Date Elsewhere, Pcp PCP - General Internal Medicine 06/25/23
--- OUTSIDE RECORDS SUMMARY | 2023-11-12 19:41 | XMS_ITS | Encounter Summary ---
Author Organization [facility] Address [address] [place] [address] Care Team Providers Care Adjunct Professor Of Law Name Role Phone Elsewhere, Pcp Primary Care Provider Unavailabl e Reason for Referral * Physical Therapy (Routine) - Authorized Specialty Diagnoses / Procedures Referred By Contac t Referred To Contact Physical Therapy Diagnoses Spondylosis Cervical Without Myelopathy Arthur Jones M.D. [address] [place] [address] Referral ID Status Reason Start Date Expiration Date Visits Requested Visits Authorized [id number] Authorized Patient Preference 08/28/2023 02/26/2025 6 6 Reason for Visit * Outpatient (Routine) - Closed Specialty Diagnoses / Procedures Referred By Contac t Referred To Contact Spine Diagnoses Abnormal Magnetic Resonance Imaging Spine Dmitri Craven M.B.B.S. [address] [address] [facility] Referral ID Status Reason Start Date Expiration Date Visits Re quested Visits Authorized [id number] Closed 08/15/2023 02/13/2025 1 1 Encounter Details Date Type Department Care Team (Latest Contact Info) Description 08/28/2023 10:00 AM CDT Comprehensive Visit Department of Spine in [place], [place] [address] [place] [phone] Arthur Jones M.D. [address] [place] [phone] 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); Abnormal Magnetic Resonance Imaging Spine Social History Tobacco Use Types Packs/Day Years Used Date Smoking Tobacco: Light Smoker Cigarettes 0.8 37.4 Started: 06/28/1986 Smokeless Tobacco: Former Chew Alcohol Use Standard Drinks/Week Comments Yes 0 (1 standard drink = 0.6 oz pur e alcohol) [facility] Utilities Answer Date Recorded In the past 12 months has th e electric, gas, oil, or water [employer] threatened to shut off services in your home? No 06/20/2023 Social Connection and Isolat ion Panel [NHANES] Answer Date Recorded Frequency of Communication w ith Friends and Family More than three times a week 10/10/2018 Frequency of Social Gatherin gs with Friends and Family Once a week 10/10/2018 Attends [employer] Services Never 10/10 Active Member of Clubs [...] Answer Date Recorded PHQ-2 Score 1 06/25/2023 [facility] of Occupat ional Health - Occupational Stress [...] your living situation today? I have a [facility] place to live 06/20/2023 Education Answer Date Recorded What is the highest level of school you have completed or the highest degree you have received? Some college, no degree 10/10/2018 Sex and Gender Information Value Date Recorded Sex Assigned at Male 06/20/2023 11:55 AM CDT Gender Identity Male 06/20/2023 11:55 AM CDT Sexual Orientation Straight 06/20/2023 11 :55 AM CDT documented as of this encounter Consult Notes * Arthur Jones M.D. - 08/28/2023 10:00 AM CDT SUBJECTIVE REQUESTING PROVIDER Dmitri Craven M.B.BJayceeS. REASON FOR CONSULT Neck pain. HISTORY OF PRESENT ILLNESS Mr. Antonio Archer is a 53 y.o., left-handed gentleman who is seen in consultation for neck pain associated with migraine headaches. 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 He also has a history of frequent headaches which are lifelong and he is felt to have chronic migraine. Throughout time these have alwaysinvolves some soreness in his neck on the mjma-waqckzm-emwj-right side, at least dating back to 1990. However his whole head hurts when he has more severe headache which he describes as his migraine. The pain is at the base of the skull and he does not have any radiation into his extremities. Therehas been no numbness or weakness, except over the right anterior lateral thigh which has been stable. Occasionally feels some nausea when he looks upward but neck extension does not increase his pain. His headaches have been treated with Botox recently. He has not had any physical therapy or chiropractic. He has had no neck injections. Past medical history, surgical history, family history, medications, allergies and social history are reviewed in [facility]. He smokes half pack per day. 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 REVIEW OF SYSTEMS I have briefly reviewed the Review of Systems as noted on the Health history form. I am only responding to those symptoms which are directly relevant to the specific indication for my consultation. Irecommend that the patient follow up with their primary or referring provider to pursue any other symptoms which may be of concern. OBJECTIVE PHYSICAL EXAMINATION There were no vitals taken for this visit. GENERAL: Well-developed and adequately nourished. MENTAL: Grossly oriented with coherent speech. Appropriate mood and affect. NEUROLOGIC: GAIT: Gait and station are normal. Toe walking and heel walking are normal. BALANCE: Tandem gait intact. STRENGTH: No atrophy or tone abnormalities noted. Bilateral upper and lower extremity strength is normal and symmetric. REFLEXES: Bilateral upper and lower extremity muscle stretch reflexes are physiologic and symmetric. Plantar responses are down going bilaterally. SENSATION: No loss of sensation is noted. Joint position sense normal at the great toes. MUSCULOSKELETAL: PALPATION: There is tenderness to palpation in the cervical paraspinal muscles in the suboccipital region. There has really no tenderness in the mid cervical, low cervical or upper trapezii. SPINE: No gross axial skeletal deformities. There is mild stiffness of cervical motion. RANGE OF MOTION: Major joints of upper extremities have functional motion. PROVOCATIVE MANEUVERS: Spurling is negative bilaterally. Lhermitte's is negative. SKIN: Inspection demonstrates no erythema, breakdown, or concerning lesions in affected area. No obvious stigmata. LYMPHATIC: No cervical or supraclavicular lymphadenopathy is appreciated. RESPIRATORY: Breathing is comfortable and regular. DIAGNOSTICS Cervical MRI 08/03/2023 shows cervical spondylosis, with degenerative disc disease greatest at C5-C6. Small right paracentral disc extrusion at C6-7 partially effaces the right ventral thecal sac butdoes not contribute to significant canal narrowing, but there is mild associated foraminal narrowing at right C6-7. ASSESSMENT / PLAN #1 Neck pain, likely myofascial #2 Cervical spondylosis #3 Migraine headaches His pain is primarily in the suboccipital or upper cervical region and has been present for many years and associated with his chronic headaches. I suspect this is mostly myofascial, and less likely related to the spondylosis. He gets a feeling of nausea with looking up but does not really get muchincreased pain with facet-loading maneuvers. I provided him with an external referral for physical therapy to include a review of his ergonomics when he has working at a computer. It is possible he may develop more spondylotic neck pain in the future which could exacerbate his headaches, so he is welcome to follow-up in the future as needed. EDUCATION We discussed the diagnosis and treatment plan in detail. The patient expressed understanding of thecontent. No apparent learning barriers were identified; learning preferences include listening. Signed by: Arthur Jones M.D. 08/28/2023 6:16 PM CDT documented in this encounter Plan of Treatment Upcoming Encounters Date Type Department Care Team (Late st Contact Info) Description 01/09/2024 3:30 PM CDT Appointment Department of Neurology in [place], [place] [address] [place] [address] Dmitri Craven M.B.B.S. [address] [place] [phone] Discharge Disposition: Home or Self Care documented as of this encounter Visit Diagnoses Diagnosis Spondylosis Cervical Without Myelopathy- Primary Abnormal Magnetic Resonance Imaging Spine documented in this encounter Additional Health Concerns Assessment Noted Time PHQ-9 Depression Total Score: 6 06/25/19 24 9:46 AM CDT documented as of this encounter Care Teams Adjunct Professor Of Law Relationship Specialty Start Date End Date Elsewhere, Pcp PCP - General Internal Medicine 06/25/23 documented as of this encounter
--- OUTSIDE RECORDS SUMMARY | 2023-11-12 19:41 | XMS_ITS ---
Author Organization [facility] Address [address] [place] [address] Care Team Providers Care Blister Pack Operator Name Role Phone Unavailable Unavailable Unavailable Surgery Details Not on file Complications Check Surgery Details section. Procedure Estimated Blood Loss Check Surgery Details section. Procedure Findings Check Surgery Details section. Procedure Specimens Taken Check Surgery Details section.
--- OUTSIDE RECORDS SUMMARY | 2023-11-12 19:41 | XMS_ITS | Encounter Summary ---
Author Organization [facility] Address [address] [place] [address] Care Team Providers Care Adult Specialist Name Role Phone Elsewhere, Pcp Primary Care Provider Unavailabl e Reason for Referral * Outpatient (Routine) - Closed Specialty Diagnoses / Procedures Referred By Contac t Referred To Contact Diagnoses Chronic Migraine Procedures Botox for Chronic Migraine [place] INJECTION,ONABOTULINUMTOXINA [place] CHEMODENERV FACIAL TRIGEM VERA Dmitri Craven M.B.B.S. [address] [place] [address], [address] [address] [facility] Referral ID Status Reason Start Date Expiration Date Visits Re quested Visits Authorized [id number] Closed 06/25/2023 12/30/2023 6 2 Reason for Visit * Outpatient (Routine) - Closed Specialty Diagnoses / Procedures Referred By Contac t Referred To Contact Diagnoses Chronic Migraine Procedures Botox for Chronic Migraine WI INJECTION,ONABOTULINUMTOXINA [place] CHEMODENERV FACIAL TRIGEM VERA Dmitri Craven M.B.B.S. [address] , [address] [address] [facility] Referral ID Status Reason Start Date Expiration Date Visits Re quested Visits Authorized [id number] Closed 06/25/2023 12/30/2023 6 2 Encounter Details Date Type Department Care Team (Latest Contact Info) Description 10/17/2023 2:35 PM CDT - 10/17/2023 11:59 PM CDT Hospital Encounter Department of Neurology in [place], [place] [address] [place] [address] Dmitri Craven M.B.B.S. [address] [facility] [address] [phone] Jan Tejeda M.D. [address] [place] [address] Chronic Migraine Discharge Disposition: Home or Self Care Social History Tobacco Use Types Packs/Day Years Used Date Smoking Tobacco: Light Smoker Cigarettes 0.8 37.4 Started: 06/28/1986 Smokeless Tobacco: Former Chew Alcohol Use Standard Drinks/Week Comments Yes 0 (1 standard drink = 0.6 oz pur e alcohol) [facility] Utilities Answer Date Recorded In the past 12 months has [employer] electric, gas, oil, or water [employer] threatened to shut off services in your home? No 06/20/2023 Social Connection and Isolat ion Panel [NHANES] Answer Date Recorded Frequency of Communication w ith Friends and Family More than three times a week 10/10/2018 Frequency of Social Gatherin gs with Friends and Family Once a week 10/10/2018 Attends Anabaptism Services Never 10/10 Active Member of Clubs [...] Answer Date Recorded PHQ-2 Score 1 06/25/2023 [facility] of Occupat ional Health - Occupational Stress [...] your living situation today? I have a [facility] place to live 06/20/2023 Education [...] AM CDT documented as of this encounter Medications at Time of Discharge Medication Sig Dispensed Refills Start Date End Date acetaminophen (TYLENOL) 325 mg tablet Take 650 mg by mouth. pantoprazole (PROTONIX) 40 mg EC tablet Take 40 mg by mouth daily. rizatriptan benzoate (RIZATRIPTAN ORAL) Take 10 mg by mouth as needed. 04/16/2023 ZOLMitriptan (ZOMIG) 5 mg tablet Take 5 mg by mouth as needed. 10/31/2013 documented as of this encounter Procedure Notes * Jan Tejeda M.D. - 10/17/2023 3:00 PM CDTAssociated Order(s): Botox for Chronic Migraine Pre-Procedure Diagnose(s): Chronic Migraine Post-Procedure Diagnose(s): Chronic Migraine Botox for Chronic Migraine Performed by: Jan Tejeda M.D. Authorized by: Dmitri Craven M.B.B.SJaycee Care team members present 1. Mark Knutson LJayceePJayceeNJaycee PROCEDURE DETAILS Pre-procedure pain score: 110 Injection of: 100 Units onabotulinumtoxinA 100 unit 50 Units onabotulinumtoxinA 50 unit Needle gauge: 30 Needle length: 0.5 in Injection site details Cardiology Fellow / Procerus muscle(s): 5 units into the left rn unit manager muscle, 5 units into the right rn unit manager muscle and 5 units into the procerus muscle (15 units total). Superior Frontalis muscle(s): 5 units into the left superior frontalis muscle and 5 units into the right superior frontalis muscle (2 injection sites per muscle) (10 units total). Temporalis muscle(s): 12.5 units into the left temporalis muscle and 12.5 units into the right temporalis muscle (2 injection sites per muscle) (25 units total). Splenius Capitis muscle(s): 12.5 units into the left splenius capitis muscle and 12.5 units into the right splenius capitis muscle (2 injection sites per muscle) (25 units total). Occipitalis muscle(s): 12.5 units into the left occipitalis muscle and 12.5 units into the right occipitalis muscle (2 injection sites per muscle) (25 units total). Trapezius muscle(s): 25 units into the left trapezius muscle and 25 units into the right trapezius muscle (3 injection sites per muscle) (50 units total). Total units wasted: 0 Total [...] confirmed in a procedural pause. PRE-PROCEDURE DETAILS Reason for injections: chronic migraine Appropriate hand [...] that is not covered by a third alliance party. Prior to treatment with Botox, the frequency of headaches was greater than 20 days per month and with significant impairment in the quality of life. Please see the initial Botox injection note and Headache consultation note regarding specific details of the headache history prior to the start of treatment. Any other daily migraine prophylactic treatments taken over the last 3 months: None Headache frequency when Botox is most effective [...] to pretreatment level? yes Midas Scorin (10/16/2023 8:24 PM) POST-PROCEDURE DETAILS Procedure completed successfully: yes Complications: no apparent complications Comments Medications tried prior to Botox treatment: Gabapentin and Topiramate. Prior to Botox how many days per month did you miss work/school due to migraines? 0- pushes throughheadaches but does leave work early because of [...] you miss work/school due to migraines? None With Botox how many days per month [...] hours per month compared to pretreatment level. Therefore, I have encouraged the patient to schedule their next round of injections 150 units in 12 weeks. documented in this encounter Plan of Treatment Upcoming Encounters Date Type Department Care Team (Late st Contact Info) Description 01/09/2024 3:30 PM CDT Appointment Department of Neurology in [place], [place] [address] [place] [address] Dmitri Craven M.B.B.S. [address] [place] [phone] Discharge Disposition: Home or Self Care documented as of this encounter Procedures Procedure Name Priority Date/Time Associated Diagnosis Comments WI CHEMODENERV FACIAL TRIGEM VERA Routine 10/17/2023 3:00 PM CDT Chronic Migraine documented in this encounter Results * WI CHEMODENERV FACIAL TRIGEM VERA (10/17/2023 3:00 PM CDT) Narrative MMODAL - 10/17/2023 3:00 PM CDT Jan Tejeda M.D. ? 10/17/2023 ??3:11 PM Botox for Chronic Migraine Performed by: Jan Tejeda M.D. Authorized by: Dmitri Craven M.B.B.S. ?? Care team members present 1. Mark Knutson L.P.N. PROCEDURE DETAILS ?? Pre-procedure pain score: 03/28 Injection of: ??100 Units onabotulinumtoxinA 100 unit 50 Units onabotulinumtoxinA 50 unit Needle gauge: 30 Needle length: 0.5 in Injection site details Cardiology Fellow / Procerus muscle(s): 5 units into the left rn unit manager muscle, 5 units into the right rn unit manager muscle ??and 5 units into the procerus [...] that is not covered by a third alliance party. ?? Prior to treatment with Botox, [...] Dmitri Armstrong NEUROLOGY ORDER CAROLANN MMODAL NA documented in this encounter Visit Diagnoses Diagnosis Chronic Migraine documented in this encounter Administered Medications Inactive Administered Medications - up to 3 most recent administrations Medication Order MAR Action Action Date Dose Rate Site onabotulinumtoxinA injection 100 Units (Botox) 100 Units, injection, One-Time Injection, Starting on Sun10/17/23 at 1500, For 1 dose Given 10/17/2023 3:00 PM CDT 100 Units Other onabotulinumtoxinA injection 50 Units (Botox Cosmetic) 50 Units, injection, One-Time Injection, Starting on Sun10/17/23 at 1500, For 1 dose Given 10/17/2023 3:00 PM CDT 50 Units Other documented in this encounter Additional Health Concerns Assessment Noted Time PHQ-9 Depression Total Score: 6 06/25/19 24 9:46 AM CDT documented as of this encounter Care Teams Adult Specialist Relationship Specialty Start Date End Date Elsewhere, Pcp PCP - General Internal Medicine 06/25/23 documented as of this encounter
--- OUTSIDE RECORDS SUMMARY | 2023-11-12 19:41 | XMS_ITS | Clinical Summary ---
Author Organization [facility] Address [address] [place] [address] Care Team Providers Care Pump Runner Name Role Phone Clinic, [facility] Primary Care Provider Allergies Active Allergy Reactions Criticality Noted Date Comments Metoclopramide 07/30/2018 Medications Medication Sig Dispensed Refills Start Date End Date Status pantoprazole (PROTONIX) 40 MG EC tablet Take 40 mg by mouth daily Active levothyroxine (SYNTHROID/LEVOTHROID) 125 MCG tablet Take 125 mcg by mouth daily Active escitalopram (LEXAPRO) 20 MG tablet Take 20 mg by mouth daily Active Social History Tobacco Use Types Packs/Day [...] of Treatment Not on file Care Teams Pump Runner Relationship Specialty Start Date End Date [facility], [facility] [address] [place] [address] PCP - General 07/30/18
--- OUTSIDE RECORDS SUMMARY | 2023-11-12 19:41 | XMS_ITS | Encounter Summary ---
Author Organization [facility] Address [address] [place] [address] Care Team Providers Care Garbage Depot Worker Name Role Phone Elsewhere, Pcp Primary Care Provider Unavailabl e Reason for Referral * Outpatient (Routine) - Closed Specialty Diagnoses / Procedures Referred By Contac t Referred To Contact Spine Diagnoses Abnormal Magnetic Resonance Imaging Spine Dmitri Craven M.B.B.S. [address] , [facility] [address] [place] [address] [facility] Referral ID Status Reason Start Date Expiration Date Visits Re quested Visits Authorized [id number] Closed 08/15/2023 02/13/2025 1 1 Encounter Details Date Type Department Care Team (Late st Contact Info) Description 08/15/2023 Orders Only Department of Neurology in [place], [place] [address] [place] [address] Dmitri Craven M.B.B.S. [address] , [address] [place] [address] Abnormal Magnetic Resonance Imaging Spine (Primary Dx) Social History Tobacco Use Types Packs/Day Years Used Date Smoking Tobacco: Light Smoker Cigarettes 0.8 37.4 Started: 06/28/1986 Smokeless Tobacco: Former Chew Alcohol Use Standard Drinks/Week Comments Yes 0 (1 standard drink = 0.6 oz pur e alcohol) [facility] Utilities Answer Date Recorded In the past 12 months has th e electric, gas, oil, or water company threatened to shut off services in your home? No 06/20/2023 Social Connection and Isolat ion Panel [NHANES] Answer Date Recorded Frequency of Communication w ith Friends and Family More than three times a week 10/10/2018 Frequency of Social Gatherin gs with Friends and Family Once a week 10/10/2018 Attends Spiritism Services Never 10/10 Active Member of Clubs [...] Answer Date Recorded PHQ-2 Score 1 06/25/2023 [facility] Answer Date [...] your living situation today? I have a [facility] place to live 06/20/2023 Education Answer [...] AM CDT documented as of this encounter Plan of Treatment Upcoming Encounters Date Type Department Care Team (Late st Contact Info) Description 01/09/2024 3:30 PM CDT Appointment Department of Neurology in [place], [place] [address] [place] [address] Dmitri Craven M.B.BJayceeS. [address] [facility] [address] [place] [address] Discharge Disposition: Home or Self Care Scheduled Referrals Name Type Priority Associated Diagnoses Orde r Schedule Spine Center - General consult (clinic) Outpatient Referral Routine Abnormal Magnetic Resonance Imaging Spine Expected: 08/15/2023, Expires: 11/14/2024 documented as of this encounter Visit Diagnoses Diagnosis Abnormal Magnetic Resonance Imaging Spine- Primary documented in this encounter Additional Health Concerns Assessment Noted Time PHQ-9 Depression Total Score: 6 06/25/19 9:46 AM CDT documented as of this encounter Care Teams Garbage Depot Worker Relationship Specialty Start Date End Date Elsewhere, Pcp PCP - General Internal Medicine 06/25/23 documented as of this encounter
--- OUTSIDE RECORDS SUMMARY | 2023-11-12 19:41 | XMS_ITS | Encounter Summary ---
Author Organization [facility] Address [address] [place] [address] Care Team Providers Care Coutierier Name Role Phone Elsewhere, Pcp Primary Care Provider Unavailabl e Reason for Referral * MRI/CAT/PET Scan (Routine) - Closed Specialty Diagnoses / Procedures Referred By Sherri snyder Referred To Contact Radiology Diagnoses Pain Neck Procedures MR Cervical Spine without IV Contrast MR Cervical Spine without and with IV Contrast Dmitri Craven M.B.B.S. [address] , [address] [address] [facility] Referral ID Status Reason Start Date Expiration Date Visits Re quested Visits Authorized [id number] Closed 06/25/2023 06/24/2024 1 1 Reason for Visit * MRI/CAT/PET Scan (Routine) - Closed Specialty Diagnoses / Procedures Referred By Contac t Referred To Contact Radiology Diagnoses Pain Neck Procedures MR Cervical Spine without IV Contrast MR Cervical Spine without and with IV Contrast Dimtri Craven M.B.B.S. [address] , [id number] [place] [address] [facility] Referral ID Status Reason Start Date Expiration Date Visits Re quested Visits Authorized [id number] Closed 06/25/2023 06/24/2024 1 1 Encounter Details Date Type Department Care Team (Latest Contact Info) Description 08/03/2023 8:14 PM CDT - 08/03/2023 11:59 PM CDT Hospital Encounter Department of Radiology, [facility] in [place], [place] [address] [place] [address] Dmitri Craven M.B.BJayceeS. [address] [facility] [address] [id number] Pain Neck Discharge Disposition: Home or Self Care Social History Tobacco Use Types Packs/Day Years Used Date Smoking Tobacco: Light Smoker Cigarettes 0.8 37.4 Started: 06/28/1986 Smokeless Tobacco: Former Chew Alcohol Use Standard Drinks/Week Comments Yes 0 (1 standard drink = 0.6 oz pur e alcohol) [facility] kajeetities Answer Date Recorded In the past 12 [...] and Family Once a week 10/10/2018 Attends [employer] Never 10/10 Active Member of Clubs [...] Answer Date Recorded PHQ-2 Score 1 06/25/2023 [facility] [place] [facility] Occupat ional [facility] - Occupational Stress [...] your living situation today? I have a [facility] place to live 06/20/2023 Education Answer Date [...] 5 mg by mouth as needed. 10/31/2013 levothyroxine (SYNTHROID, LEVOTHROID) 125 mcg tablet Take 125 mcg by mouth daily. 08/28/2023 documented as of this encounter Plan of Treatment Upcoming Encounters Date Type Department Care Team (Late st Contact Info) Description 01/09/2024 3:30 PM CDT Appointment Department of Neurology in [place], [place] [address] [place] [address] Dmitri Craven M.B.B.S. [address], [place] [address] [phone] Discharge Disposition: Home or Self Care documented as of this encounter Procedures Procedure Name Priority Date/Time Associated Diagnosis Comments MR CERVICAL SPINE WITHOUT IV CONTRAST RAD - Routine (most inpatients and all outpatients) 08/03/2023 9:41 PM CDT Pain Neck documented in this encounter Results * MR Cervical Spine without IV Contrast (08/03/2023 9:41 PM CDT) Anatomical Region Laterality Modality Spine, Cervical Spine, Neuro radiology [facility], Neuroradiology [facility], Neuroradiology [facility] N/A Magneti c Resonance Impressions 08/06/2023 11:30 AM CDT Cervical spondylosis as detailed including degenerative disc disease greatest at C5-C6 where it is moderate. Small right paracentral disc extrusion at C6-7 partially effaces the right ventral thecal sac but does not contribute to significant canal narrowing. Mild associated foraminal narrowing at right C6-7. See body report for further details. Narrative 08/06/2023 11:30 AM CDT EXAM: MR CERVICAL SPINE WITHOUT IV CONTRAST COMPARISON: Brain MRI 10/10/2018. FINDINGS: Preserved cervical alignment. Vertebral heights and bone marrow signal intensity are within normal limits. No abnormal signal within the cervical or upper thoracic spinal cord. Degenerative disc disease greatest at C5-C6 where there is moderate loss of intervertebral disc space height with type II Modic changes about the opposing endplates. Fairly prominent right paracentral disc extrusion at C6-7 partially effaces the ventral thecal sac but does not contact or indent the ventral spinal cord. This disc extrusion likely accounts for mild narrowing of the right C6-7 foramen. Additional less prominent posterior disc osteophyte complexes noted at C4-5 and C6-7 without significant canal narrowing. Relatively mild degenerative uncovertebral and cervical facet arthropathy without additional significant foraminal narrowing. Presumed hemangioma within the left-sided posterior elements of T2. Partially visualized presumed giant perivascular spaces involving the left upper brainstem. Procedure Note Amol Moseley M.D. - 08/06/2023 EXAM: MR CERVICAL SPINE WITHOUT IV CONTRAST COMPARISON: Brain MRI 10/10/2018. FINDINGS: Preserved cervical alignment. Vertebral heights and bone marrowsignal intensity are within normal limits. No abnormal signal within thecervical or upper thoracic spinal cord. Degenerative disc disease greatestat C5-C6 where there is moderate loss of intervertebral disc space height with type II Modic changes aboutthe opposing endplates. Fairly prominent right paracentral disc extrusionat C6-7 partially effaces the ventral thecal sac but does not contact orindent the ventral spinal cord. This disc extrusion likely accounts for mild narrowing of the right C6-7foramen. Additional less prominent posterior disc osteophyte complexesnoted at C4-5 and C6-7 without significant canal narrowing. Relativelymild degenerative uncovertebral and cervical facet arthropathy without additional significant foraminalnarrowing. Presumed hemangioma within the left-sided posterior elements of T2.Partially visualized presumed giant perivascular spaces involving the leftupper brainstem. IMPRESSION: Cervical spondylosis as detailed including degenerative disc diseasegreatest at C5-C6 where it is moderate. Small right paracentral discextrusion at C6-7 partially effaces the right ventral thecal sac but doesnot contribute to significant canal narrowing. Mild associated foraminal narrowing at right C6-7. See bodyreport for further details. Dmitri Armstrong Kyler MRI PROCEDU RES documented in this encounter Visit Diagnoses Diagnosis Pain Neck documented in this encounter Additional Health Concerns Assessment Noted Time PHQ-9 Depression Total Score: 6 06/25/19 24 9:46 AM CDT documented as of this encounter Care Teams Coutierier Relationship Specialty Start Date End Date Elsewhere, Pcp PCP - General Internal Medicine 06/25/23 documented as of this encounter
--- OUTSIDE RECORDS SUMMARY | 2023-11-12 19:41 | XMS_ITS | Referral Summary ---
Author Organization [facility] Address [facility] [place] [address] Care Team Providers Care Metal Control Coordinator Name Role Phone Clinic, [facility] [...] Treatment Not on file Care Teams Metal Control Coordinator Relationship Specialty Start Date End Date [facility], [facility] [address] [place] [address] PCP - General 07/30/18
--- NOTE | 2023-11-20 12:08 | W.PM.SLEEP ---
Sleep Study Details Details Interpreting Provider: Linden Date of Sleep Study: 11/12/23 Sleep Study Details: STUDY TYPE:? Home unattended ? BMI:? 31 ORDERING PROVIDER:Dipika Azul INDICATION:? Concern about sleep apnea ? SLEEP SUMMARY:? 277 minutes monitored RESPIRATORY SUMMARY:? AHI 8.2, supine 15.3, right lateral 3.3 Low oxygen 89 1.1% of study oxygen less than 90% Snoring 55.7% PERIODIC LIMB MOVEMENTS OF SLEEP:? Not recorded CARDIAC:? Range 60-99, mean 70 IMPRESSION:? This study demonstrates mild obstructive sleep apnea present only in the supine position. RECOMMENDATION: If patient is symptomatic treatment options would include lateral sleep, CPAP AutoSet or dental appliance.
== END 2023-11-12 19:39 | disposition home or self-care (01) ==
LOC: SLEEP 19:39
PROVIDERS: PCP Family Medicine; Visit Provider Family Medicine
DX: G47.33 Obstructive sleep apnea (adult) (pediatric) (principal)
CPT/HCPCS: 95806